=== PATIENT | female | born 1980 | race Caucasian/White ===

== ENCOUNTER 2020-08-28 16:55 | Emergency (ER) | payer OTHER, SELFPAY ==
[2020-08-28 17:07] VITALS: BP 136/84; PULSE 71; RESP 20; TEMP 37.2; O2SAT 100
--- NOTE | 2020-08-28 17:15 | ED.GENADULT ---
HPI - General Adult General Chief complaint: Skin/Abscess/Foreign Body Stated complaint: rash Time Seen by Provider: 08/28/20 17:15 Source: patient Mode of arrival: ambulatory Limitations: no limitations History of Present Illness HPI narrative: 40 y/o female. PMH includes: See Chart. Presents to clinic today with acute complaints of Rash, worsening to RUE for past 8 days. She initially reports to have come in contact with poison norma when she was bike riding 8 days ago. Pt notes to have had poison norma develop to her RT AC, with associated 'weeping and itching' from areas. She has been using home Calamine therapies 'multiple times a day'. However, she now notes worsening and 'open areas', with increased erythema, swelling, and warmth to surrounding area on her RT arm. She notes increased drainage, and sub-therapeutic response to OTC remedies. No fever, chills, dyspnea, facial/oral/or additional integumentary involvement. She is without additional acute c/o upon PE. Related Data Allergies Allergy/AdvReac Type Severity Reaction Status Date / Time No Known Allergies Allergy Verified 08/28/20 16:57 Review of Systems Review of Systems: Narrative: CONSTITUTIONAL: Denies fever, chills, sweats. EYES: Denies visual changes, redness, discharge. ENT: Denies rhinorrhea, congestion, sore throat, otalgia. CARDIOVASCULAR: Denies chest pain, palpitations, edema. RESPIRATORY: Denies dyspnea, wheezing, cough GASTROINTESTINAL: Denies abdominal pain, nausea, vomiting, diarrhea. GENITOURINARY: Denies dysuria, hematuria, abnormal discharge SKIN: Rash, itching, redness to RT arm. MUSCULOSKELETAL: Denies acute back pain, joint pain, or myalgia. NEUROLOGIC: Denies numbness, or focal weakness. PSYCHIATRIC: Denies anxiety or depression. All systems reviewed & are unremarkable except as noted in HPI and below PMFSH Social History Social History Gender identity (if verbalized by the patient): Female Exam Narrative: Exam Narrative: GENERAL: This is a well-nourished, well-developed patient, in no apparent distress. HEAD: normocephalic, atraumatic. EYES: PERRL. Sclera clear/white. Vision is grossly intact. EARS: External ears normal, auditory canals clear and without drainage, TMs normal without perforation. Hearing grossly intact. NOSE: External nose normal with no obvious nasal discharge, nares without redness, no rhinorrhea. THROAT: Mucous membranes moist, posterior pharynx clear. NECK: Neck supple, non-tender without lymphadenopathy, masses or thyromegaly. CARDIOVASCULAR: Regular rate and rhythm without murmurs, gallops, or rubs. Palpable pulses 3+ RUE. RESPIRATORY: Clear to auscultation. Breath sounds equal bilaterally. No wheezes, rales, or rhonchi. GASTROINTESTINAL: Abdomen soft, non-tender, nondistended. Bowel sounds are active. No hepato-splenomegaly, or palpable masses. No guarding. SKIN: warm. Turgor well. With 12 x 7 cm area of poison norma located to inner RT AC. There are a few scattered open, red, linear lesions with serosanguineous and mild yellow tinged discharge. There is associated surrounding erythema and mild warmth to generalized are consistent with clinical impression of early cellulitis development. There is no fluctuance or abscess appreciated. NEURO: awake, alert, and oriented to person, place and time. There were no obvious focal neurologic abnormalities. Distal sensation RUE preserved. Steady gait EXTREMITIES: Normal range of motion. No edema. No calf tenderness. BACK: Nontender without deformity or crepitance. No flank tenderness. [place] Coma Scale Eye Opening: Spontaneous 4 [place] Coma Scale Motor: Obeys Commands 6 [place] Coma Scale Verbal: Oriented 5 Course Course Emergency Course: Physical exam findings, diagnosis, and clinical recommendations reviewed with client. Discharge instructions, medication/prescription instructions reviewed with patient. Patient had
== END 2020-08-28 17:33 | disposition home or self-care (01) ==
PROVIDERS: Emergency Provider Nurse Practitioner Adult Health; PCP Family Medicine
DX: L23.7 Allergic contact dermatitis due to plants, except food (principal); L03.113 Cellulitis of right upper limb
CPT/HCPCS: 96372; 99213; G0463; J1100

== ENCOUNTER 2021-10-20 16:39 | Emergency (ER) | payer OTHER, SELFPAY ==
--- NOTE | 2021-10-20 16:40 | ED.URI ---
HPI - URI/Sore Throat General Chief Complaint: Upper Respiratory Infection Stated Complaint: Fever,Stuffy Nose,Body Aches Time Seen by Provider: 10/20/21 16:47 Source: patient and RN notes reviewed History of Present Illness HPI Narrative: Patient is a 41-year-old female who presents the urgent care with complaints of stuffy nose, head congestion and body aches. Patient states that started on Wednesday and she has been taking DayQuil and NyQuil for her symptoms. Patient states that she has had a low-grade fevers of 101 Fahrenheit. States that she did have a Covid vaccine. Patient denies of any known exposures. Patient has been going to work and living her normal daily life since her symptoms started. No other acute complaints. No acute distress noted. Patient aware of the plan of care. Some parts of this dictation were generated by voice recognition software and may contain typographical and/or grammatical inaccuracies. Related Data Allergies Allergy/AdvReac Type Severity Reaction Status Date / Time No Known Allergies Allergy Verified 10/20/21 16:48 Review of Systems Review of Systems: CONSTITUTIONAL: Denies fever, chills, or sweats. EYES: Denies visual changes, redness, or discharge. ENT: Denies rhinorrhea, congestion, sore throat, or otalgia. CARDIOVASCULAR: Denies chest pain, palpitations, or edema. RESPIRATORY: Denies cough or dyspnea. GASTROINTESTINAL: Denies abdominal pain, nausea, vomiting, or diarrhea. GENITOURINARY: Denies dysuria or hematuria. SKIN: Denies rash or itching. MUSCULOSKELETAL: Denies back pain, joint pain, or myalgia. NEUROLOGIC: Denies headache, numbness, or weakness. All other systems reviewed are negative, except as documented in HPI. PMFSH Social History Social History Gender identity (if verbalized by the patient): Female Comments At the time of my signature, I reviewed and agree with the nursing past medical, surgical, social, and family history. There is no relevant family history pertinent to the patient complaint. Exam Narrative: GENERAL: This is a well-nourished, well-developed patient, in no apparent distress. HEAD: normocephalic, atraumatic. Frontal sinus tenderness EYES: PERRL. Sclera clear/white. Vision is grossly intact. EARS: External ears normal, auditory canals clear and without drainage, TMs normal without perforation. Hearing grossly intact. NOSE: External nose normal with no obvious nasal discharge, nares without redness, clear to yellow rhinorrhea. THROAT: Mucous membranes moist, posterior pharynx clear. Mild postnasal drainage NECK: Neck supple CARDIOVASCULAR: Regular rate and rhythm without murmurs, gallops, or rubs. RESPIRATORY: Clear to auscultation. Breath sounds equal bilaterally. No wheezes, rales, or rhonchi. SKIN: warm, intact with no suspicious lesions or rash, good texture and turgor. NEURO: awake, alert, and oriented to person, place and time. There were no obvious focal neurologic abnormalities. EXTREMITIES: No clubbing, cyanosis, or edema. Course Vital Signs Vital signs: Vital Signs Temperature 98.7 F 10/20/21 16:47 Pulse Rate 90 10/20/21 16:47 Respiratory Rate 18 10/20/21 16:47 Blood Pressure 130/92 H 10/20/21 16:47 Pulse Oximetry 100 10/20/21 16:47 Temperature 98.7 F 10/20/21 16:49 Pulse Rate 90 10/20/21 16:49 Respiratory Rate 18 10/20/21 16:49 Blood Pressure 130/92 H 10/20/21 16:49 Pulse Oximetry 100 10/20/21 16:49 Reviewed-patient is informed that they may have pre-hypertension or hypertension based on a blood pressure reading in the department. I recommend the patient call the primary care provider listed on their discharge instructions or a physician of their choice this week to arrange follow-up for further evaluation of possible pre-hypertension or hypertension. MDM - URI/Sore Throat MDM Narrative Medical decision making narrative: Reviewed lab results with the anita
[2021-10-20 16:47] VITALS: BP 130/92; PULSE 90; RESP 18; TEMP 37.1; O2SAT 100
[2021-10-20 16:49] VITALS: BP 130/92; PULSE 90; RESP 18; TEMP 37.1; O2SAT 100
== END 2021-10-20 17:23 | disposition home or self-care (01) ==
PROVIDERS: Emergency Provider Nurse Practitioner Family; PCP Family Medicine
DX: B34.9 Viral infection, unspecified (principal); J06.9 Acute upper respiratory infection, unspecified
CPT/HCPCS: 87804; 99213; G0463